=== PATIENT | female | born 1970 ===

== ENCOUNTER 2016-11-16 23:02 | Emergency (ER) | payer SELFPAY ==
[2016-11-16 23:17] VITALS: BP 125/76; PULSE 90; RESP 18; TEMP 99.6; O2SAT 99; BMI 29.0
--- NOTE | 2016-11-16 23:19 | ED PDOC ---
HPI: General Adult Time Seen by Provider: 11/16/16 23:16 Chief Complaint (Provider): abscess History Per: Patient, Family (Patient's at bedside is translating for patient in iraqi) Additional Complaint(s): 46-year-old female with no past medical history presents to emergency department with pain, redness and swelling to the left labia majora that started 2 days ago. Patient denies trauma or injury. She denies fever or chills , denies any active bleeding or active drainage. No dysuria or vaginal discharge reported. Past Medical History Reviewed: Historical Data, Nursing Documentation, Vital Signs - Medical History PMH: No Chronic Diseases - Family History Family History: States: No Known Family Hx - Living Arrangements Living Arrangements: With Family - Social History Current smoker - smoking cessation education provided: Yes (1 cigarette per day ) Alcohol: None Drugs: Denies - Home Medications Home Medications: Ambulatory Orders Medication Instructions Recorded Amoxicillin/Clavulanate [Augmentin 1 tab PO BID #14 tab 11/16/16 875 MG-125 MG] Ibuprofen [Motrin Tab] 800 mg PO Q8 PRN #20 tab 11/16/16 Sulfamethoxazole/Trimethoprim 1 tab PO BID #14 tab 11/16/16 [Bactrim DS 800 mg-160 mg] - Allergies Allergies/Adverse Reactions: Allergies Allergy/AdvReac Type Severity Reaction Status Date / Time No Known Allergies Allergy Verified 11/16/16 23:16 Review of Systems ROS Statement: Except As Marked, All Systems Reviewed And Found Negative Constitutional: Negative for: Fever, Chills Genitourinary Female: Positive for: Other (pain to left labia majora for 2 days) Physical Exam - Reviewed Nursing Documentation Reviewed: Yes Vital Signs Reviewed: Yes - Physical Exam Appears: Positive for: Well, Non-toxic, No Acute Distress Skin: Negative for: Rash Eye Exam: Positive for: Normal appearance Pelvic Exam: Positive for: Other (3 cm indurated, nonfluctuant abscess noted to mid left labia majora extending proximally, no central pointing or active drainage, no active bleeding, no palpable inguinal lymph nodes, localized erythema noted with no diffuse cellulitis) Neurologic/Psych: Positive for: Alert, Oriented - ECG O2 Sat by Pulse Oximetry: 99 Pulse Ox Interpretation: Normal Medical Decision Making Medical Decision Making: Impression: Abscess to proximal labia majora (not involving bartholin's gland) Plan: PO motrin Initial doses of bactrim and augmentin given Patient was instructed to apply warm compresses with Epsom salts to affected area as off as possible. Prescriptions given for Bactrim, Augmentin and Motrin. Patient was instructed to follow-up in 2 days for wound recheck or follow up with [facility] clinic, referral provided. Disposition - Clinical Impression Clinical Impression: Labial abscess - Patient ED Disposition Is Patient to be Admitted: No Counseled Patient/Family Regarding: Diagnosis, Need For Followup, Rx Given - Disposition [facility] Disposition: Routine/Home Disposition Time: 23:27 Condition: STABLE Additional Instructions: Take rx meds as directed. Apply warm compresses to affected area with epsom salts and often as possible. Return to ED in 2 days for wound re-check or follow up with women's clinic in 2-3 days. Prescriptions: Amoxicillin/Clavulanate [Augmentin 875 MG-125 MG] 1 tab PO BID #14 tab Ibuprofen [Motrin Tab] 800 mg PO Q8 PRN #20 tab PRN Reason: Pain, Moderate (4-7) Sulfamethoxazole/Trimethoprim [Bactrim DS 800 mg-160 mg] 1 tab PO BID #14 tab Instructions: Abscess (ED) Forms: [employer] (Yi) Print Language: PORTUGUESE
[2016-11-16] MEDS ORDERED: Tmp-Smz 800 mg-160 mg DS Tab PO STA (23:23)
[2016-11-16] MEDS ORDERED: Amoxicillin-Clav 875-125 mg Tab PO STA (23:23)
[2016-11-16] MEDS ORDERED: Amoxicillin-Clav 875-125 mg Tab PO ONE (23:36)
[2016-11-16] MEDS ORDERED: Tmp-Smz 800 mg-160 mg DS Tab ONE (23:36)
== END 2016-11-16 23:52 | disposition home or self-care (01) ==
LOC: H.ER 23:02
DX: N76.4 Abscess of vulva (principal)

== ENCOUNTER 2016-12-14 23:44 | Emergency (ER) | payer SELFPAY ==
[2016-12-14 23:44] VITALS: BMI 29.0
[2016-12-15 00:01] VITALS: BP 111/78; PULSE 83; RESP 16; TEMP 98.8; O2SAT 100
[2016-12-15] MEDS ORDERED: DiphenhydrAMINE 50 mg/ml Inj IVP STA (00:27)
[2016-12-15] MEDS ORDERED: Sodium Chloride 0.9% 1,000 ML IV STA (00:27)
--- NOTE | 2016-12-15 00:30 | ED PDOC ---
HPI: Allergic Reaction Time Seen by Provider: 12/15/16 00:28 Chief Complaint (Nursing): Allergic Reaction Chief Complaint (Provider): sob History Per: Patient (46 y/o female here with rash that began on hands and worsened throughout body. Denies any cough/sob/throat swelling. Unsure of food allergens.) Past Medical History Reviewed: Historical Data, Nursing Documentation, Vital Signs Vital Signs: Last Vital Signs Temp 98.8 F 12/14/16 23:58 Pulse 83 12/14/16 23:58 Resp 16 12/14/16 23:58 BP 111/78 12/14/16 23:58 Pulse Ox 100 12/14/16 23:58 - Family History Family History: States: No Known Family Hx - Home Medications Home Medications: Ambulatory Orders Medication Instructions Recorded Amoxicillin/Clavulanate [Augmentin 1 tab PO BID #14 tab 11/16/16 875 MG-125 MG] Ibuprofen [Motrin Tab] 800 mg PO Q8 PRN #20 tab 11/16/16 Sulfamethoxazole/Trimethoprim 1 tab PO BID #14 tab 11/16/16 [Bactrim DS 800 mg-160 mg] DiphenhydrAMINE [Benadryl] 50 mg PO Q6 PRN #24 cap 12/15/16 Famotidine [Pepcid] 20 mg PO BID #10 tab 12/15/16 predniSONE [Prednisone] 3 tab PO DAILY #12 tab 12/15/16 - Allergies Allergies/Adverse Reactions: Allergies Allergy/AdvReac Type Severity Reaction Status Date / Time No Known Allergies Allergy Verified 11/16/16 23:16 Review of Systems ROS Statement: Except As Marked, All Systems Reviewed And Found Negative Skin: Positive for: Rash Physical Exam - Reviewed Nursing Documentation Reviewed: Yes Vital Signs Reviewed: Yes - Physical Exam Appears: Positive for: Well, Non-toxic, No Acute Distress Head Exam: Positive for: ATRAUMATIC, NORMAL INSPECTION, NORMOCEPHALIC Skin: Positive for: Warm. Negative for: Normal Color (urticaria generalized involving neck/forearms) Eye Exam: Positive for: EOMI, Normal appearance, PERRL ENT: Positive for: Normal ENT Inspection Neck: Positive for: Normal, Painless ROM Cardiovascular/Chest: Positive for: Regular Rate, Rhythm Respiratory: Positive for: CNT, Normal Breath Sounds Gastrointestinal/Abdominal: Positive for: Normal Exam, Bowel Sounds, Soft Back: Positive for: Normal Inspection Extremity: Positive for: Normal ROM Neurologic/Psych: Positive for: Alert, Oriented - ECG O2 Sat by Pulse Oximetry: 100 - Progress ED Course And Treament: SOLUMEDROL 125 MG IV X 1 DOSE PEPCID 20 MG IV X 1 DOSE BENADRYL 50MG IV X 1 DOSE NS 1 LITER 500 ML IV PER HOUR. Disposition - Clinical Impression Clinical Impression: Allergic reaction - Disposition Disposition: Routine/Home Disposition Time: 01:37 Condition: FAIR Prescriptions: DiphenhydrAMINE [Benadryl] 50 mg PO Q6 PRN #24 cap PRN Reason: Itching / Pruritus Famotidine [Pepcid] 20 mg PO BID #10 tab predniSONE [Prednisone] 3 tab PO DAILY #12 tab Instructions: General Allergic Reaction (ED) Forms: [employer] (Italian) Print Language: UKRAINIAN
[2016-12-15] MEDS ORDERED: DiphenhydrAMINE 50 mg/ml Inj ONE (01:07)
== END 2016-12-15 03:38 | disposition home or self-care (01) ==
LOC: H.ER 23:44
DX: T78.40XA Allergy, unspecified, initial encounter (principal)
CPT/HCPCS: 96361; 96374; 96375; 99282; J1200; J2930; J7040

== ENCOUNTER 2017-05-07 13:13 | Emergency (ER) | payer SELFPAY ==
[2017-05-07 13:13] VITALS: BMI 29.0
[2017-05-07 13:24] VITALS: BP 115/66; PULSE 79; RESP 18; TEMP 98; O2SAT 99
--- NOTE | 2017-05-07 14:15 | ED PDOC ---
HPI: Abdomen Time Seen by Provider: 05/07/17 14:14 Chief Complaint (Nursing): Abdominal Pain Chief Complaint (Provider): abd pain, back pain History Per: Patient, Medical Scheduler (Haleigh Staley at bedside for Mongolian translation) Additional Complaint(s): 47-year-old female presents to emergency department with abdominal pain and back pain 4 days. Patient states the pain radiates from left flank region to left lower quadrant. She denies any nausea, vomiting, diarrhea or constipation. No dysuria, hematuria or urgency. Patient denies vaginal bleeding or vaginal discharge. She took Tylenol 2 days ago for pain but this did not help. No fever or chills. PMD: Kemal Viveros Past Medical History Reviewed: Historical Data, Nursing Documentation, Vital Signs Vital Signs: Last Vital Signs Temp 98.0 F 05/07/17 13:19 Pulse 79 05/07/17 13:19 Resp 18 05/07/17 13:19 BP 115/66 05/07/17 13:19 Pulse Ox 99 05/07/17 15:39 - Medical History PMH: No Chronic Diseases - Surgical History Surgical History: No Surg Hx - Family History Family History: States: No Known Family Hx - Living Arrangements Living Arrangements: With Family - Social History Current smoker - smoking cessation education provided: Yes ("occasionally") Alcohol: Social Drugs: Denies - Home Medications Home Medications: Ambulatory Orders Medication Instructions Recorded Amoxicillin/Clavulanate [Augmentin 1 tab PO BID #14 tab 11/16/16 875 MG-125 MG] Ibuprofen [Motrin Tab] 800 mg PO Q8 PRN #20 tab 11/16/16 Sulfamethoxazole/Trimethoprim 1 tab PO BID #14 tab 11/16/16 [Bactrim DS 800 mg-160 mg] DiphenhydrAMINE [Benadryl] 50 mg PO Q6 PRN #24 cap 12/15/16 Famotidine [Pepcid] 20 mg PO BID #10 tab 12/15/16 predniSONE [Prednisone] 3 tab PO DAILY #12 tab 12/15/16 Ciprofloxacin HCl [Cipro] 500 mg PO BID #14 tablet 05/07/17 Metronidazole [Flagyl] 500 mg PO TID #21 tab 05/07/17 traMADol [Ultram] 50 mg PO TID PRN #15 tab 05/07/17 - Allergies Allergies/Adverse Reactions: Allergies Allergy/AdvReac Type Severity Reaction Status Date / Time No Known Allergies Allergy Verified 11/16/16 23:16 Review of Systems ROS Statement: Except As Marked, All Systems Reviewed And Found Negative Constitutional: Negative for: Fever, Chills Cardiovascular: Negative for: Chest Pain Respiratory: Negative for: Cough Gastrointestinal: Positive for: Abdominal Pain. Negative for: Nausea, Vomiting , Diarrhea, Constipation Musculoskeletal: Positive for: Back Pain Physical Exam - Reviewed Nursing Documentation Reviewed: Yes Vital Signs Reviewed: Yes - Physical Exam Appears: Positive for: Well, Non-toxic, No Acute Distress Skin: Negative for: Rash Eye Exam: Positive for: Normal appearance Cardiovascular/Chest: Positive for: Regular Rate, Rhythm Respiratory: Positive for: Normal Breath Sounds Gastrointestinal/Abdominal: Positive for: Tenderness (LLQ, no reboud, distention or guarding) Back: Positive for: L CVA Tenderness. Negative for: R CVA Tenderness Extremity: Positive for: Normal ROM Neurologic/Psych: Positive for: Alert, Oriented - Laboratory Results Result Diagrams: 05/07/17 16:04 05/07/17 16:04 Urine POC: Negative - ECG O2 Sat by Pulse Oximetry: 99 Pulse Ox Interpretation: Normal - Other Rad CT abd and pelvis without contrast X-Ray: Read By Radiologist X-Ray Interpretation: see below Medical Decision Making Medical Decision Makin47 year old with left flank and abd pain Plan: CBC CMP UA/Culture CT abd and pelvis without contrast IVF IV toradol CT: IMPRESSION: Acute descending colon/ sigmoid diverticulitis. Patient is aware of all diagnostic testing results, all questions answered. Patient states she feels much better after Toradol dose was given. Initial doses of oral Cipro and Flagyl given in ED. Prescriptions provided for Cipro, Flagyl and tramadol. Patient was given dietary instructions and was directed to follow up with primary doctor in 2-3 days. Patient was advised to return to ER if acutely worse at any time. Disposition - Clinical Impression Clinical Impression: Diverticulitis - Patient ED Disposition Is Patient to be Admitted: No Counseled Patient/Family Regarding: Studies Performed, Diagnosis, Need For Followup, Rx Given - Disposition Referrals: [facility] [Outside] Disposition: Routine/Home Disposition Time: 18:14 Condition: STABLE Additional Instructions: Take prescription medications as directed. Follow up with primary doctor in 2-3 days or return any time if acutely worse. Prescriptions: Ciprofloxacin HCl [Cipro] 500 mg PO BID #14 tablet Metronidazole [Flagyl] 500 mg PO TID #21 tab traMADol [Ultram] 50 mg PO TID PRN #15 tab PRN Reason: Pain, Moderate (4-7) Instructions: Diverticulitis Diet (DC), Diverticulitis (ED) Forms: [employer] (Mongolian) Print Language: LAO Results - Lab Results Lab Results: 05/07/17 05/07/17 05/07/17 16:04 16:04 14:40 WBC 10.6 RBC 4.09 Hgb 12.6 Hct 38.2 MCV 93.3 MCH 30.9 MCHC 33.1 RDW 13.2 Plt Count 245 MPV 9.5 Neut % (Auto) 74.2 Lymph % (Auto) 15.9 L [place] % (Auto) 6.9 Eos % (Auto) 2.6 Baso % (Auto) 0.4 Neut # (Auto) 7.9 H Lymph # (Auto) 1.7 [place] # (Auto) 0.7 Eos # (Auto) 0.3 Baso # (Auto) 0.0 Sodium 141 Potassium 3.9 Chloride 101 Carbon Dioxide 27 Anion Gap 17 BUN 13 Creatinine 0.8 Est GFR ( Amer) > 60 Est GFR (Non-Af Amer) > 60 Random Glucose 88 Calcium 9.7 Total Bilirubin 0.4 AST 34 ALT 39 Alkaline Phosphatase 70 Total Protein 8.1 Albumin 4.4 Globulin 3.7 Albumin/Globulin Ratio 1.2 Urine Color Straw Urine Clarity Slight-cloudy Urine pH 6.0 Ur Specific [place] 1.012 Urine Protein Negative Urine Glucose (UA) Negative Urine Ketones Negative Urine Blood Small Urine Nitrate Negative Urine Bilirubin Negative Urine Urobilinogen 0.2 Ur Leukocyte Esterase Negative Urine RBC (Auto) 2 Urine Microscopic WBC < 1 Ur Squamous Epith Cells 3
[2017-05-07 15:12] LABS: SQUAMOUS EPITHIAL 3 /hpf (0-5)
[2017-05-07 15:13] LABS: URINE BILIRUBIN NEGATIVE (NEGATIVE); URINE CLARITY SLIGHT-CLOUDY (Clear); URINE COLOR STRAW (YELLOW); URINE GLUCOSE (UA) NEGATIVE (Normal)
[2017-05-07 15:14] LABS: URINE BLOOD SMALL (NEGATIVE); URINE LEUKOCYTE ESTERASE NEGATIVE Leu/uL (Negative); URINE NITRATE NEGATIVE (NEGATIVE); URINE PROTEIN NEGATIVE (NEGATIVE); URINE UROBILINOGEN 0.2 mg/dL (0.2-1.0)
[2017-05-07] MEDS ORDERED: Sodium Chloride 0.9% 1,000 ML IV STA (15:39)
[2017-05-07 16:11] LABS: BASO % 0.4 % (0.0-2.0); EOS # 0.3 K/uL (0.0-0.7); EOS % 2.6 % (0.0-4.0); HEMOGLOBIN 12.6 g/dL (12.0-16.0); LYMPH # 1.7 K/uL (1.0-4.3); LYMPH % 15.9 % (20.0-40.0); MEAN CELL VOLUME 93.3 fl (81.0-99.0); MEAN CORPUSCULAR HEMOGLOBIN 30.9 pg (27.0-31.0); MEAN CORPUSCULAR HGB CONC 33.1 g/dL (33.0-37.0); MEAN PLATELET VOLUME 9.5 fl (7.2-11.7); MONO # 0.7 K/uL (0.0-0.8); MONO % 6.9 % (0.0-10.0); NEUT # 7.9 K/uL (1.8-7.0); NEUT % 74.2 % (50.0-75.0); NRBC % 0.1 % (0.0-0.0); RBC 4.09 Mil/uL (3.80-5.20); RED CELL DISTRIBUTION WIDTH 13.2 % (11.5-14.5); WHITE BLOOD COUNT 10.6 K/uL (4.8-10.8)
[2017-05-07 16:29] LABS: ALB/GLOB RATIO 1.2 (1.0-2.1); ALBUMIN 4.4 g/dL (3.5-5.0); ALT/SGPT 39 U/L (9-52); AST/SGOT 34 U/L (14-36); BLOOD UREA NITROGEN 13 mg/dl (7-17); CALCIUM 9.7 mg/dL (8.4-10.2); GFR AFRICAN-AMERICAN > 60; GFR NON-AFRICAN AMERICAN > 60
--- NOTE | 2017-05-07 17:19 | CT ---
PROCEDURE: CT Abdomen and Pelvis without intravenous contrast HISTORY: left flank pain, LLQ pain COMPARISON: None. TECHNIQUE: Technique. Contrast Dose: 95 cc Omnipaque 300 Radiation dose: Total exam DLP = 1065.66 mGy-cm. This CT exam was performed using one or more of the following dose reduction techniques: Automated exposure control, adjustment of the mA and/or kV according to patient size, and/or use of iterative reconstruction technique. FINDINGS: LOWER THORAX: Unremarkable. LIVER: Unremarkable. No gross lesion or ductal dilatation. GALLBLADDER AND BILE DUCTS: Unremarkable. PANCREAS: Unremarkable. No gross lesion or ductal dilatation. SPLEEN: Unremarkable. ADRENALS: Unremarkable. No mass. KIDNEYS AND URETERS: Unremarkable. No hydronephrosis. No solid mass. VASCULATURE: Unremarkable. No aortic aneurysm. BOWEL: Acute inflammatory changes associate with diverticular disease distal descending colon extending into the sigmoid consistent with acute appendicitis. Inflammatory changes track in a cephalad direction into the mesenteries. . No drainable collection, loculated air, free air. APPENDIX: Unremarkable. Normal appendix. PERITONEUM: Unremarkable. No free fluid. No free air. LYMPH NODES: Unremarkable. No enlarged lymph nodes. BLADDER: Unremarkable. REPRODUCTIVE: Unremarkable. BONES: No acute fracture. OTHER FINDINGS: None. IMPRESSION: Acute descending colon/ sigmoid diverticulitis.
== END 2017-05-07 18:26 | disposition home or self-care (01) ==
LOC: H.ER 13:13
DX: K57.32 Diverticulitis of large intestine without perforation or abscess without bleeding (principal)
CPT/HCPCS: 74176; 80053; 81003; 81025; 85025; 87086; 87491; 87591; 99284; J1885; J7040

== ENCOUNTER 2018-06-20 19:35 | Emergency (ER) | payer SELFPAY ==
[2018-06-20 19:36] VITALS: BMI 29.0
[2018-06-20 21:36] VITALS: BP 106/71; PULSE 80; RESP 16; TEMP 99.2; O2SAT 97
--- NOTE | 2018-06-20 23:20 | ED PDOC ---
HPI: General Adult Time Seen by Provider: 06/20/18 21:50 Chief Complaint (Nursing): Abnormal Skin Integrity Chief Complaint (Provider): rash, uri History Per: Patient History/Exam Limitations: no limitations, language barrier (rylandlara [id number]) Onset/Duration Of Symptoms: Days Additional Complaint(s): 48 yo F presents with 2-3 days of bodyaches, chills, sore throat, non productive cough and one day of diffuse itchy body rash. Pt reports putting a cream on the rash with no improvement. Pt denies taking any other medications. Pts spouse is sick with similar URI sxs. No known contacts with rash. Denies recent antibiotics, new medications, new soaps, detergents, lotions. Denies recent travel, chest pain, difficulty breathing, lip or tongue swelling, similar rash before. PMD: Marisel Pina LMP: 1 wk ago Past Medical History Reviewed: Historical Data, Nursing Documentation, Vital Signs Vital Signs: Last Vital Signs Temp 99.2 F 06/20/18 21:32 Pulse 80 06/20/18 21:32 Resp 16 06/20/18 21:32 BP 106/71 06/20/18 21:32 Pulse Ox 97 06/20/18 21:32 - Medical History PMH: No Chronic Diseases - Family History Family History: States: Unknown Family Hx - Living Arrangements Living Arrangements: With Family - Social History Current smoker - smoking cessation education provided: No Alcohol: None Drugs: Denies - Home Medications Home Medications: Ambulatory Orders Medication Instructions Recorded Amoxicillin/Clavulanate [Augmentin 1 tab PO BID #14 tab 11/16/16 875 MG-125 MG] Ibuprofen [Motrin Tab] 800 mg PO Q8 PRN #20 tab 11/16/16 Sulfamethoxazole/Trimethoprim 1 tab PO BID #14 tab 11/16/16 [Bactrim DS 800 mg-160 mg] DiphenhydrAMINE [Benadryl] 50 mg PO Q6 PRN #24 cap 12/15/16 Famotidine [Pepcid] 20 mg PO BID #10 tab 12/15/16 predniSONE [Prednisone] 3 tab PO DAILY #12 tab 12/15/16 Ciprofloxacin HCl [Cipro] 500 mg PO BID #14 tablet 05/07/17 Metronidazole [Flagyl] 500 mg PO TID #21 tab 05/07/17 traMADol [Ultram] 50 mg PO TID PRN #15 tab 05/07/17 DiphenhydrAMINE [Benadryl] 25 mg PO Q6 PRN #20 cap 06/20/18 Methylprednisolone [Medrol Dose 4 mg PO DAILY #21 mg 06/20/18 Pack (21 tabs)] - Allergies Allergies/Adverse Reactions: Allergies Allergy/AdvReac Type Severity Reaction Status Date / Time No Known Allergies Allergy Verified 11/16/16 23:16 Review of Systems Constitutional: Positive for: Chills. Negative for: Fever ENT: Negative for: Ear Pain Cardiovascular: Negative for: Chest Pain Respiratory: Positive for: Cough Skin: Positive for: Rash Physical Exam - Reviewed Nursing Documentation Reviewed: Yes - Physical Exam Comments: GENERALIZED APPEARANCE: Patient is AAOx3 in no acute distress. SKIN: Warm, dry; (-) cyanosis, diffuse erythematous papules to upper body, fac e, upper extremities, spares palms and soles, no vesicles, purulent drainage or signs of infection EYES: (-) conjunctival pallor, (-) scleral icterus, (-) conjunctival hemorrhage. ENMT: Mucous membranes moist.no lip or tongue swelling, no trismus, TMs: (-) erythema. Airway patent: (-) stridor. Pharynx: no uvual deviation or airway obstruction,(-) erythema, (-) exudate. NECK: (-) tenderness, (-) stiffness, (-) meningismus, (-) lymphadenopathy. CHEST AND RESPIRATORY: (-) accessory muscle use. Lungs: (-) rales, (-) rhonchi, (-)wheezes, (-) rub; breath sounds equal bilaterally. HEART AND CARDIOVASCULAR: (-) irregularity; (-) murmur, (-) gallop, (-) rub. ABDOMEN AND GI: Soft; (-) tenderness, (-) guarding; (-) organomegaly; (-) mass; (-) CVAtenderness. EXTREMITIES: (-) deformity; (-) cellulitis (-)edema. NEURO AND PSYCH: Mental status as above; (-) focal findings. - ECG O2 Sat by Pulse Oximetry: 97 Medical Decision Making Medical Decision Makin:50 48 yo healthy F with URI symptoms and rash -- flu and rapid strep ordered -- benadryl and prednisone ordered (pt has a ride home) 23:30 on re eval pt is feeling better, less itching, flu and strep negative, no respiratory distress pt with URI, rash could be viral related or allergy related, discussed with pt need for follow up, will treat with benadryl and medrol dose pack and discussed OTC cold/cough treatment discussed results, diagnosis, treatment, return precautions and f/u with pt who is understanding, in agreement and stable for dc Disposition - Clinical Impression Clinical Impression: Rash and nonspecific skin eruption, URI (upper respiratory infection) - Patient ED Disposition Is Patient to be Admitted: No Counseled Patient/Family Regarding: Studies Performed, Diagnosis, Need For Followup, Rx Given - Disposition Referrals: your doctor, Dr. trevino [Other] [facility] [Outside] Disposition: Routine/Home Disposition Time: 23:36 Condition: STABLE Additional Instructions: Regrese a la ED para sntomas nuevos o que empeoran, fiebre> 100.4, hinchazn de los labios o la lengua, dificultad para respirar o tragar, dolor en el pecho. Cuca un seguimiento con moore mdico de cabecera en 1-2 pearce. [place] los medicamentos segn lo prescrito para la erupcin. [place]cansa, bong muchos lquidos.Return to ED for new or worsening symptoms, fever >100.4, lip or tongue swelling, difficulty breathing or swallowing, chest pain. Follow up with your primary doctor in 1-2 days. Take medications as prescribed for rash. Rest, drink plenty of fluids. Prescriptions: DiphenhydrAMINE [Benadryl] 25 mg PO Q6 PRN #20 cap PRN Reason: Itching / Pruritus Methylprednisolone [Medrol Dose Pack (21 tabs)] 4 mg PO DAILY #21 mg Instructions: Viral Upper Respiratory Infection, Adult (DC), Skin Rash (DC) Forms: [employer] (Occitan), [facility] ED School/Work Excuse Print Language: NICARAGUAN - POA Present On Arrival: None
== END 2018-06-20 23:40 | disposition home or self-care (01) ==
LOC: H.ER 19:35
DX: R21 Rash and other nonspecific skin eruption (principal); J06.9 Acute upper respiratory infection, unspecified